=== PATIENT | female | born 1960 | race Caucasian/White ===

== ENCOUNTER 2021-10-04 15:25 | Emergency (ER) | payer OTHER ==
[2021-10-05] MEDS ORDERED: LEVOTHYROXINE88 MCG PO (13:34)
[2021-10-05] MEDS ORDERED: MAG-OXIDE 400M400 MG PO (13:35)
[2021-10-05] MEDS ORDERED: LIOTHYRONINE SO5 MCG PO (13:35)
[2021-10-05] MEDS ORDERED: THYROID SUPPORT PO (13:35)
[2021-10-05] MEDS ORDERED: [UNRECOGNIZED DRUG - OTHER] PO (13:36)
== END 2021-10-04 18:48 | disposition home or self-care (01) ==
LOC: FER 15:25
DX: S82.452A Displaced comminuted fracture of shaft of left fibula, initial encounter for closed fracture (principal); S82.52XA Displaced fracture of medial malleolus of left tibia, initial encounter for closed fracture; W01.0XXA Fall on same level from slipping, tripping and stumbling without subsequent striking against object, initial encounter; Y92.009 Unspecified place in unspecified non-institutional (private) residence as the place of occurrence of the external cause; Z28.310 Unvaccinated for COVID-19
CPT/HCPCS: 73610